=== PATIENT | female | born 1945 | race Caucasian/White ===

== ENCOUNTER → 2018-09-08 17:09 | Outpatient (CLI) | payer MEDICARE, SELFPAY ==
[2018-09-08 17:15] LABS: Adenovirus F 40/41, stool Not Detected (NotDetected); Astrovirus Not Detected (NotDetected); Campylobacter Not Detected (NotDetected); Clostridium Difficile A/B, PCR Not Detected (NotDetected); Cryptosporidium Not Detected (NotDetected); Cyclospora Cayetanesis Not Detected (NotDetected); Entamoeba histolytica Not Detected (NotDetected); Enteroaggregative E coli Not Detected (NotDetected); Enteropathogenic E coli Not Detected (NotDetected); Enterotoxigenic E coli Not Detected (NotDetected); Giardia lamblia Not Detected (NotDetected); Norovirus Not Detected (NotDetected); Plesimonas Shigalloides, PCR Not Detected (NotDetected); Rotavirus A Not Detected (NotDetected); Salmonella, PCR Not Detected (NotDetected); Sapovirus Not Detected (NotDetected); Shiga-like toxin E coli Not Detected (NotDetected); Shigella Enterovasive E coli Not Detected (NotDetected); Vibrio Cholerae Not Detected (NotDetected); Vibrio, PCR Not Detected (NotDetected); Yersinia Entercolitica, PCR Not Detected (NotDetected)
== END ==
PROVIDERS: Visit Provider Nurse Practitioner Acute Care
DX: R19.4 Change in bowel habit (principal)
CPT/HCPCS: 83630; 87507

== ENCOUNTER 2020-06-12 14:08 | Emergency (ER) | payer MEDICARE, SELFPAY ==
[2020-06-12 14:30] VITALS: BP 127/70; PULSE 63; RESP 20; TEMP 36.3; O2SAT 98; BMI 31.1
--- NOTE | 2020-06-12 14:56 | HMH.EDUTC ---
[facility] [place] Clinical Impression: Encounter for laboratory testing for COVID-19 virus, Exposure to COVID-19 virus Disposition: Home, Self-Care Condition on Discharge: Good Instructions: Preventing the Spread of Coronavirus Discharge Instructions Additional Instructions: *Monitor Temp, Over the counter Motrin or Tylenol as directed/as needed Tylenol every 4 hours and Motrin every 6 hours (as long as your family doctor has told you that you can take it) for fever or pain. and straight to ER if unable to lower temp less than 101.0 after medication given *Warm salt water gargles may help to soothe the throat *Throat Lozenges *Warm fluids like tea with honey may help to soothe the throat *Sleep elevated *Humidifier/Vaporizer Follow up IMMEDIATELY for new or worsening symptoms or no Noticeable improvement over the next 48-72 hours. 911 for difficulty breathing or swallowing You was tested for today for COVID19 your test result should be back later this evening, you may call back later this evening to see if your test results are back and the result You was given a handout with instructions for Self Quarantine and Self isolation for while you wait on test results and what to do if they are positive Referrals: Pancho Ruiz [Primary Care Provider] - As needed Forms: Work/School Release Time of Disposition: 15:04 Medical Decision Making - Eliazar Inquiry Pt receiving controlled substance: No Eliazar was queried for this patient: No Vital Signs: 06/12/20 14:30 Temperature 97.4 F L Temperature Source Oral Pulse Rate [Radial] 63 Respiratory Rate 20 Blood Pressure [Right Arm] 127/70 Blood Pressure Mean [Right Arm] 89 Blood Pressure Source [Right Arm] Automatic Cuff Blood Pressure Position [Right Arm] Sitting 02 Sat by Pulse Oximetry 98 Oxygen Delivery Method Room Air Orders (Tests/Meds): ORDERS Category Date Time Status Covid-19 Nasal PCR Sendout [facility] 06/12/20 14:20 Received [facility] [place] HPI - General Stated complaint: covid exposure test Time Seen by Provider: 06/12/20 14:57 Mode of Arrival: Ambulatory Source of Information: Patient Limitations: No Limitations Description of Symptoms (Recalled from Triage Doc. by RN): wants covid test. 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 and now she is sick State sthat yesterday she had a low grade fever body aches and some diarrhea and today she still wasnt feeling well and found out they was positive so she come in to get checked - Related Data Home Medications Medication Instructions Recorded Confirmed Aspirin [Aspir 81] 81 mg PO DAILY 11/25/18 11/25/18 Calcium Carbonate [Calcium] 500 mg PO DAILY 11/25/18 11/25/18 Cyanocobalamin (Vitamin B-12) 1,000 mcg PO DAILY 11/25/18 11/25/18 [Vitamin B-12] Ergocalciferol (Vitamin D2) 1,000 unit PO DAILY 11/25/18 11/25/18 [Vitamin D] L.acidoph,Paracasei, B.lactis 1 each PO DAILY 11/25/18 11/25/18 [Probiotic] Losartan Potassium 100 mg PO DAILY 11/25/18 11/25/18 [place]-3 Fatty Acids [Fish Oil] 1,200 mg PO DAILY 11/25/18 11/25/18 Omeprazole [Omeprazole 20mg 20 mg PO DAILY 11/25/18 11/25/18 Capsule] Simvastatin 20 mg PO DAILY 11/25/18 11/25/18 Triamterene/Hydrochlorothiazid 1 each PO DAILY 11/25/18 11/25/18 [Dyazide 37.5-25 Capsule] Vitamin E 800 unit PO DAILY 11/25/18 11/25/18 Allergies Allergy/AdvReac Type Severity Reaction Status Date / Time No Known Allergies Allergy Verified 11/25/18 16:17 - Worker's Comp Is this a Worker's Comp case?: No [facility] History - Hepatitis A Screen Drug use history?: No High risk sexual beha
[2020-06-12 15:27] VITALS: BP 146/98; PULSE 88; RESP 19; TEMP 36.9; O2SAT 100
[2020-06-14 13:35] LABS: Covid-19 Nasal PCR Sendout Lex Positive
== END 2020-06-12 15:27 | disposition home or self-care (01) ==
PROVIDERS: Emergency Provider Nurse Practitioner; PCP Family Medicine
DX: U07.1 COVID-19 (principal); I10 Essential (primary) hypertension; E78.5 Hyperlipidemia, unspecified; Z79.899 Other long term (current) drug therapy
CPT/HCPCS: G0463; 99201; U0004

== ENCOUNTER → 2021-05-12 16:49 | Outpatient (CLI) | payer MEDICARE, SELFPAY | PROVIDERS: Visit Provider Internal Medicine Gastroenterology | DX: Z01.812 Encounter for preprocedural laboratory examination (principal); Z20.822 Contact with and (suspected) exposure to COVID-19; Z12.11 Encounter for screening for malignant neoplasm of colon | CPT/HCPCS: C9803; U0003; U0005 ==

== ENCOUNTER 2021-05-15 08:15 | Day surgery (SDC) | payer MEDICARE, SELFPAY ==
[2021-05-10 14:00] VITALS: BMI 30.7
[2021-05-15 08:51] VITALS: BP 162/82; PULSE 80; RESP 18; TEMP 36.3; O2SAT 96
--- NOTE | 2021-05-15 09:36 | HMH.ANESCL ---
[facility] Anesthesia Checklist - Patient Identification Patient Identification: Arm Band - Structural Data Admitted From: Home Planned Operative Procedure/s: Colonoscopy Consent for Planned Operative Procedure(s) Verified: Yes - NPO Status Verified Time NPO: 00:00 - Additional verifications Anesthesia Reactions: No Hx Blood Transfusions: No Blood Transfusion Reaction: No - Airway Assessment C-Spine Mobility Assessed: Yes TMJ Mobility Assessed: Yes Dentition: Good Dentition - Neurological Assessment Level of Consciousness: Awake Hx Seizures: No Numbness or tingling in extremities: No - Anesthesia Plan Anesthesia Risk discussed: Yes Anesthesia Plan: Verified ASA Class: II Anesthesia Type: MAC [facility] History I have reviewed the patient's past medical history: Yes Medical History: Reports:: Cancer (skin ca), Hyperlipidemia, Hypertension Denies:: Diabetes Mellitus Type 1, Diabetes Mellitus Type 2, Internal Pacemaker, Lung Disease, MRSA, Seizures *Have you ever received a pneumonia vaccine?: Yes *Have you received a flu vaccine this season?: Yes (2019) Other Medical History: Denies: Blood Transfusion Reaction Anesthesia experience/problems:: None Laterality Cases: Right: Lumpectomy, Bilateral: Cataract Other Surgeries: No: Pacemaker Amputation: No - *Social History Last grade of school completed: High school graduate Smoking Status: Never smoker Alcohol Intake: never Substance Use Type: denies use *Occupational Status:: employed Housing: house Household Members: spouse *Travel in the last 8 weeks: None Family Hx:: No significant family history
[2021-05-15 10:08] VITALS: O2SAT 4
--- NOTE | 2021-05-15 10:40 | P.PCN_ITS ---
[facility] Procedure Note Procedure Note:: Colonoscopy Procedure Report: Colonoscopy with cold snare polypectomy and APC ablation Endoscopist: Bob Dunham II, MD Referring physician: Pancho Ruiz MD Date of Procedure: May 15, 2021 Equipment: Olympus 190 variable stiffness pediatric colonoscope Sedation: MAC sedation Indication: Mrs. Holt is a 75-year-old female who is here for follow-up surveillance colonoscopy secondary to a personal history of advanced adenomatous polyps. She had a colonoscopy in November 2018 and had a large distal rectal polyp (traditional serrated adenoma) and 2 additional smaller tubular adenomas that were removed. I did recommend 2-year surveillance. The patient reports no abdominal pain, weight loss, change in her bowel habits or rectal bleeding. She reports no family history of colon cancer. Her bowel function has improved. Procedure: Prior to the procedure, a history and physical exam was performed, and patient's medications and allergies were reviewed. The risks, benefits and alternatives of the sedation and procedure were discussed with the patient. All questions were answered and informed consent was obtained. The patient was brought to the procedure room. Patient identification and proposed procedure were verified by the physician and the nurse. The patient was placed in a left lateral decubitus position and the scope was passed under direct vision. Throughout the procedure, the patient's blood pressure, pulse, and oxygen saturations were monitored continuously. The colonoscopy was accomplished without difficulty. The patient tolerated the procedure well. Findings: On digital rectal examination there was normal rectal tone. There were no external hemorrhoids. The colonoscope was introduced through the anal canal to the rectum and advanced to the cecum. The ileocecal valve and appendiceal orifice were identified. The scope was advanced a short distance into the ileum which appeared grossly normal. The scope was then withdrawn into the colon. The cecum, ascending, transverse and descending colon were grossly normal. There was a diminutive 4 mm polyp in the sigmoid colon removed via cold snare polypectomy. Upon retroflexion within the rectum there was some residual distal rectal polyp at the pectinate line and was approximately 15 mm. This was com pletely removed via cold snare polypectomy. After complete excision of the polyp, the polypectomy site was ablated/coagulated using the APC (argon plasma scratcher tender). The preparation was excellent throughout with [place] Preparation Score of 9. The cecal time was 14 minutes. Impression: 1. Distal rectal advanced adenoma 15 mm (at pectinate line) status post removal and coagulation of polypectomy site 2. Diminutive sigmoid polyp Plan: I will follow up the histology and recommend surveillance sigmoidoscopy in 6 months to ensure that there is no residual adenomatous polyp. I will discuss this with the patient and family.
[2021-05-15 10:44] VITALS: BP 79/40; PULSE 67; RESP 12; TEMP 36.1; O2SAT 94
[2021-05-15 10:54] VITALS: BP 82/42; PULSE 53; RESP 16; O2SAT 97
[2021-05-15 11:04] VITALS: BP 137/58; PULSE 61; RESP 16; O2SAT 97
[2021-05-15 11:14] VITALS: BP 140/83; PULSE 58; RESP 16; TEMP 36.1; O2SAT 98
== END 2021-05-15 11:22 | disposition home or self-care (01) ==
LOC: OUTP 08:19
PROVIDERS: PCP Family Medicine; Visit Provider Internal Medicine Gastroenterology
PROC: 0DJD8ZZ Inspection of Lower Intestinal Tract, Via Natural or Artificial Opening Endoscopic (ICD-10-PCS; CPT 45378; principal; 2021-05-15 09:30)
DX: Z12.11 Encounter for screening for malignant neoplasm of colon (principal); Z86.010 Personal history of colon polyps; K62.1 Rectal polyp; K63.5 Polyp of colon; E78.5 Hyperlipidemia, unspecified; I10 Essential (primary) hypertension; Z85.828 Personal history of other malignant neoplasm of skin; K21.9 Gastro-esophageal reflux disease without esophagitis; Z79.82 Long term (current) use of aspirin; Z79.899 Other long term (current) drug therapy
CPT/HCPCS: 45385; 45388; 88305; C2618; J2704